=== PATIENT | female | born 1950 | race Caucasian/White ===

== ENCOUNTER 2021-04-05 13:34 | Emergency (ER) | payer MEDICARE, OTHER ==
[~2021-04-05] VITALS: Ht 152.4 cm; Wt 96.2 kg
[~2021-04-05 13:34] MED LIST: ACET500 PO; AMLO5 PO; CALCAVITDA PO; ESCI10 PO; FLAX PO; HYDACE5 PO; MULVITA PO
[2021-04-05] MEDS ORDERED: EUTHYROX88 MCG PO (14:02)
[2021-04-05] MEDS ORDERED: HYDR10 PO (14:03)
[2021-04-05] MEDS ORDERED: FAMO20 (14:03)
[2021-04-05] MEDS ORDERED: BENZ100A (14:04)
[2021-04-05] MEDS ORDERED: ATOR20 PO (14:05)
[2021-04-05] MEDS ORDERED: CITA20 PO (14:05)
[2021-04-05] MEDS ORDERED: MAGCIT300 PO (14:55)
== END 2021-04-05 15:04 | disposition home or self-care (01) ==
LOC: ER 13:34
DX: K59.00 Constipation, unspecified (principal); I10 Essential (primary) hypertension; Z88.5 Allergy status to narcotic agent; Z79.899 Other long term (current) drug therapy
CPT/HCPCS: 74018; 99283-25

== ENCOUNTER → 2025-10-05 | Outpatient (CLI) | payer MEDICARE ==
[~2025-10-05] MED LIST changes: +ATOR20 PO; +BENZ100A; +CITA20 PO; +EUTHYROX88 MCG PO; +FAMO20; +HYDR10 PO; +MAGCIT300 PO
== END | disposition home or self-care (01) ==
LOC: LAB 07:30 → LAB SHORT 07:30
DX: K21.00 Gastro-esophageal reflux disease with esophagitis, without bleeding (principal); R11.0 Nausea
CPT/HCPCS: 87338